=== PATIENT | female | born 1985 | race African-American/Black ===

== ENCOUNTER 2018-10-04 11:06 | Inpatient (IN) | payer MEDICAID ==
[~2018-10-04] VITALS: Ht 162.6 cm; Wt 72.1 kg
[~2018-10-04 11:06] MED LIST: ALBUTEROL; MONT4TAB9 PO; PRED1TAB PO
[2018-10-04] MEDS ORDERED: METHYLPREDNISOLONE SOD SUCC 125 MG/2 ML VIAL IV STA (11:17)
[2018-10-04] MEDS ORDERED: IPRATROPIUM BROMIDE (0.02%) 0.5MG/2.5ML NEB HHN STA (11:17)
[2018-10-04] MEDS ORDERED: MAGNESIUM 2 G PREMIX 50 ML IV STA (11:17)
[2018-10-04] MEDS ORDERED: ALBUTEROL (0.083%) 2.5MG/3ML NEB HHN STA (11:17)
[2018-10-04 12:16] LABS: BASOPHILS % 0.8 % (0.0-2.0); EOSINOPHILS % 0.5 % (0.0-5.0); HEMATOCRIT. 36.1 % (36.0-48.0); HEMOGLOBIN. 11.9 g/dL (12.0-16.0); LYMPHOCYTES % 51.6 % (20.0-50.0); MEAN CORPUSCULAR HEMOGLOBIN 32.4 pg (28.0-32.0); MEAN CORPUSCULAR VOLUME 98.1 fL (81.0-99.0); MONOCYTES % 10.2 % (2.0-8.0); NEUTROPHILS % 36.9 % (40.0-76.0); PLATELET 203 x1000/uL (130-400); RED BLOOD CELL COUNT 3.68 mill/uL (4.2-5.4); RED CELL DISTRIBUTION WIDTH 12.6 % (11.6-14.6)
[2018-10-04 12:22] LABS: CHLORIDE 110 mEq/L (98-107)
[2018-10-04] MEDS ORDERED: ONDANSETRON HCL 4MG/2ML INJ IV PRN (13:30)
[2018-10-04] MEDS ORDERED: ACETAMINOPHEN 325MG TABLET PO PRN (13:30)
[2018-10-04] MEDS ORDERED: GUAIFENESIN 200MG/10ML SUGAR FREE UDC PO PRN (13:30)
[2018-10-04] MEDS ORDERED: CLONIDINE 0.1MG TABLET PO PRN (13:30)
[2018-10-04] MEDS ORDERED: POTASSIUM CHLORIDE 20MEQ TABLET SR PO ONE (13:30)
[2018-10-04] MEDS ORDERED: DOCUSATE SODIUM 100MG CAPSULE PO PRN (13:30)
[2018-10-04] MEDS ORDERED: MAGNESIUM/ALUMINUM HYDROXIDE/SIMETHICONE 30ML UDC PO PRN (13:30)
[2018-10-04] MEDS ORDERED: DIPHENHYDRAMINE 50MG/ML VIAL IV PRN (13:30)
[2018-10-04] MEDS ORDERED: IPRATROPIUM/ALBUTEROL 0.5-3(2.5)MG/3ML NEB HHN PRN (13:30)
[2018-10-04 14:51] LABS: PHOSPHORUS 2.3 mg/dL (2.5-4.9)
[2018-10-04 16:00] VITALS: BP_SYST 108; BP_SYST 124; BP_DIAS 61; BP_DIAS 66
[2018-10-04] MEDS ORDERED: BENZONATATE 100MG CAPSULE PO PRN (16:15)
[2018-10-04] MEDS: ENOXAPARIN 40MG/0.4ML SYR SUBCUT SCH (18:04)
[2018-10-04] MEDS: MONTELUKAST SODIUM 10MG TABLET PO SCH (18:04)
[2018-10-04] MEDS: HYDROCODONE/ACETAMINOPHEN 5/325MG TABLET PO PRN ×2 (18:12→22:58)
[2018-10-04 19:03] LABS: TOTAL IRON BINDING CAPACITY 352 ug/dL (250-450)
[2018-10-04 20:00] VITALS: BP 120/70
[2018-10-04] MEDS: FAMOTIDINE 20MG TABLET PO SCH (22:10)
[2018-10-04] MEDS: METHYLPREDNISOLONE SOD SUCC 40 MG/ML VIAL IV SCH (22:10)
[2018-10-04] MEDS: LORATADINE 10MG TABLET PO SCH (22:10)
[2018-10-04] MEDS: FLUTICASONE PROPIONATE 50MCG/SPRAY BOTTLE BOTHNSTRLS SCH (22:10)
[2018-10-05] VITALS: BP 124/68
[2018-10-05 04:00] VITALS: BP 106/69
[2018-10-05] MEDS: METHYLPREDNISOLONE SOD SUCC 40 MG/ML VIAL IV SCH ×3 (05:15→21:17)
[2018-10-05] MEDS: IPRATROPIUM/ALBUTEROL 0.5-3(2.5)MG/3ML NEB HHN SCH ×4 (07:29→22:12)
[2018-10-05 08:00] VITALS: BP 105/59
[2018-10-05 08:11] LABS: BASOPHILS % 0.2 % (0.0-2.0); HEMATOCRIT. 35.5 % (36.0-48.0); HEMOGLOBIN. 11.8 g/dL (12.0-16.0); LYMPHOCYTES % 12.7 % (20.0-50.0); MEAN CORPUSCULAR HEMOGLOBIN 32.5 pg (28.0-32.0); MEAN CORPUSCULAR VOLUME 98.1 fL (81.0-99.0); MEAN PLATELET VOLUME 11.1 fl (7.4-10.4); MONOCYTES % 4.1 % (2.0-8.0); PLATELET 219 x1000/uL (130-400); RED BLOOD CELL COUNT 3.62 mill/uL (4.2-5.4); RED CELL DISTRIBUTION WIDTH 12.7 % (11.6-14.6)
[2018-10-05 08:26] LABS: CHLORIDE 107 mEq/L (98-107)
[2018-10-05 08:34] LABS: LDL CHOLESTEROL 58 mg/dL (5-100)
[2018-10-05 08:36] LABS: HDL CHOLESTEROL 82 mg/dL (40-59)
[2018-10-05] MEDS: FAMOTIDINE 20MG TABLET PO SCH ×2 (08:53→21:18)
[2018-10-05] MEDS: FLUTICASONE PROPIONATE 50MCG/SPRAY BOTTLE BOTHNSTRLS SCH ×2 (08:53→21:18)
[2018-10-05 12:00] VITALS: BP 95/52
[2018-10-05 16:00] VITALS: BP 99/61
[2018-10-05] MEDS: MONTELUKAST SODIUM 10MG TABLET PO SCH (16:13)
[2018-10-05] MEDS: ENOXAPARIN 40MG/0.4ML SYR SUBCUT SCH (16:13)
[2018-10-05] MEDS: LORATADINE 10MG TABLET PO SCH (21:18)
[2018-10-06] MEDS: IPRATROPIUM/ALBUTEROL 0.5-3(2.5)MG/3ML NEB HHN SCH ×6 (01:39→19:52)
[2018-10-06] MEDS: METHYLPREDNISOLONE SOD SUCC 40 MG/ML VIAL IV SCH ×3 (05:20→21:38)
[2018-10-06 07:40] LABS: CHLORIDE 107 mEq/L (98-107)
[2018-10-06 07:56] LABS: BASOPHILS % 0.2 % (0.0-2.0); HEMATOCRIT. 34.9 % (36.0-48.0); HEMOGLOBIN. 11.7 g/dL (12.0-16.0); LYMPHOCYTES % 7.9 % (20.0-50.0); MEAN CORPUSCULAR HEMOGLOBIN 32.4 pg (28.0-32.0); MEAN PLATELET VOLUME 11.2 fl (7.4-10.4); MONOCYTES % 4.2 % (2.0-8.0); NEUTROPHILS % 87.7 % (40.0-76.0); PLATELET 212 x1000/uL (130-400); RED CELL DISTRIBUTION WIDTH 12.9 % (11.6-14.6)
[2018-10-06] MEDS: FAMOTIDINE 20MG TABLET PO SCH ×2 (08:04→21:37)
[2018-10-06] MEDS: FLUTICASONE PROPIONATE 50MCG/SPRAY BOTTLE BOTHNSTRLS SCH ×2 (08:05→21:38)
[2018-10-06] MEDS ORDERED: GUAIFENESIN-DM 200MG-20MG/10ML UDC PO PRN (10:00)
[2018-10-06 12:00] VITALS: BP 100/67
[2018-10-06 16:00] VITALS: BP 97/67
[2018-10-06] MEDS: MONTELUKAST SODIUM 10MG TABLET PO SCH (16:54)
[2018-10-06] MEDS: ENOXAPARIN 40MG/0.4ML SYR SUBCUT SCH (16:55)
[2018-10-06] MEDS ORDERED: GUAIFENESIN 200MG/10ML SUGAR FREE UDC PO SCH (17:00)
[2018-10-06] MEDS ORDERED: GUAIFENESIN-DM 200MG-20MG/10ML UDC PO SCH (18:00)
[2018-10-06 20:00] VITALS: BP 113/62
[2018-10-06] MEDS: LORATADINE 10MG TABLET PO SCH (21:38)
[2018-10-06 23:42] VITALS: BP 109/64
[2018-10-07] MEDS: IPRATROPIUM/ALBUTEROL 0.5-3(2.5)MG/3ML NEB HHN SCH ×4 (00:25→12:24)
[2018-10-07 04:00] VITALS: BP 111/78
[2018-10-07 06:53] LABS: BASOPHILS % 0.1 % (0.0-2.0); HEMATOCRIT. 34.2 % (36.0-48.0); HEMOGLOBIN. 11.5 g/dL (12.0-16.0); LYMPHOCYTES % 9.3 % (20.0-50.0); MEAN CORPUSCULAR HEMOGLOBIN 32.7 pg (28.0-32.0); MEAN CORPUSCULAR VOLUME 97.2 fL (81.0-99.0); MEAN PLATELET VOLUME 11.5 fl (7.4-10.4); MONOCYTES % 3.1 % (2.0-8.0); NEUTROPHILS % 87.5 % (40.0-76.0); PLATELET 187 x1000/uL (130-400); RED BLOOD CELL COUNT 3.52 mill/uL (4.2-5.4); RED CELL DISTRIBUTION WIDTH 12.8 % (11.6-14.6)
[2018-10-07 07:56] LABS: CHLORIDE 106 mEq/L (98-107)
[2018-10-07 08:00] VITALS: BP 115/81
[2018-10-07] MEDS ORDERED: PREDNISONE 20MG TABLET PO SCH (09:00)
[2018-10-07] MEDS: FAMOTIDINE 20MG TABLET PO SCH (09:42)
[2018-10-07] MEDS: FLUTICASONE PROPIONATE 50MCG/SPRAY BOTTLE BOTHNSTRLS SCH (09:43)
[2018-10-07] MEDS ORDERED: ALBU18HF2 IH (11:09)
[2018-10-07] MEDS ORDERED: IPRA3AMP9 HHN (11:09)
[2018-10-07] MEDS ORDERED: FLUT9.9S BOTHNSTRLS (11:09)
[2018-10-07] MEDS ORDERED: BENZ-16 PO (11:09)
[2018-10-07] MEDS ORDERED: MOME13HF2 INH (11:09)
[2018-10-07] MEDS ORDERED: CLAR10 PO (11:09)
[2018-10-07] MEDS ORDERED: FAMO-135 MT (11:09)
[2018-10-07] MEDS ORDERED: P20 MT (11:09)
[2018-10-07] MEDS ORDERED: OXYM30SP BOTHNSTRLS (11:09)
[2018-10-07] MEDS ORDERED: FERR325T6 MT (11:13)
[2018-10-07] MEDS ORDERED: ASCO100T12 MT (11:13)
[2018-10-07 12:00] VITALS: BP 106/68
[2018-10-07 13:03] VITALS: BP 106/68
== END 2018-10-07 14:23 | disposition home or self-care (01) | DRG 133 ==
LOC: ER 11:06 → EDBEDREQTM 12:55 → EDBEDREQ 12:55 → 7WST 13:07 → EDBEDREQ 13:11 → ENRESERV 13:43
PROVIDERS: ADMIT Internal Medicine; ATTEND Internal Medicine
DX: J96.00 Acute respiratory failure, unspecified whether with hypoxia or hypercapnia (principal); E44.1 Mild protein-calorie malnutrition; D72.819 Decreased white blood cell count, unspecified; E87.6 Hypokalemia; D72.820 Lymphocytosis (symptomatic); D72.821 Monocytosis (symptomatic); D50.9 Iron deficiency anemia, unspecified; F41.9 Anxiety disorder, unspecified; J45.41 Moderate persistent asthma with (acute) exacerbation; Z77.098 Contact with and (suspected) exposure to other hazardous, chiefly nonmedicinal, chemicals; Z98.891 History of uterine scar from previous surgery; Z79.899 Other long term (current) drug therapy; Z79.51 Long term (current) use of inhaled steroids; Z68.27 Body mass index [BMI] 27.0-27.9, adult
CPT/HCPCS: 36415; 71045; 80048; 80061; 82728; 83540; 83550; 83735; 83880; 84100; 84443; 84484; 93005; 93970; 94640; 94644; 96365; 96375; 99291; J1650; J2405; J2920; J2930; J3475; J7512; J7611; J7620

== ENCOUNTER 2019-01-24 09:23 | Emergency (ER) | payer MEDICAID ==
[~2019-01-24] VITALS: Ht 162.6 cm; Wt 72.0 kg
[~2019-01-24 09:23] MED LIST changes: +ALBU18HF2 IH; -ALBUTEROL; +ASCO100T12 MT; +BENZ-16 PO; +CLAR10 PO; +FAMO-135 MT; +FERR325T6 MT; +FLUT9.9S BOTHNSTRLS; +IPRA3AMP9 HHN; +MOME13HF2 INH; +OXYM30SP BOTHNSTRLS; +P20 MT; -PRED1TAB PO
[2019-01-24] MEDS ORDERED: IBUPROFEN 600MG TABLET PO ONE (10:30)
[2019-01-24] MEDS ORDERED: PREDNISONE 20MG TABLET PO ONE (10:30)
[2019-01-24 12:40] VITALS: BP 98/68
== END 2019-01-24 12:38 | disposition home or self-care (01) ==
LOC: ER 09:23
DX: J06.9 Acute upper respiratory infection, unspecified (principal); J45.909 Unspecified asthma, uncomplicated; B34.9 Viral infection, unspecified; F41.9 Anxiety disorder, unspecified; Z79.899 Other long term (current) drug therapy; Z88.2 Allergy status to sulfonamides
CPT/HCPCS: 81025; 87804; 99283; J7512; Z7610